=== PATIENT | female | born 1955 | race Caucasian/White ===

== ENCOUNTER 2017-12-02 15:03 | Outpatient (CLI) | payer BC ==
--- NOTE | 2017-12-15 11:20 | MMO ---
BILATERAL SCREENING MAMMOGRAM: Date: 12/02/17 COMPARISON: 11/29/16 and 12/12/14. HISTORY: Screening mammography. FINDINGS: This patient's mammogram was interpreted with the assistance of computer-aided detection. Scattered fibroglandular densities are present. Benign calcifications are noted bilaterally. There is no dominant mass or architectural distortion. No concerning microcalcifications are seen. IMPRESSION: BIRADS 2: Benign Finding(s) Annual screening mammography recommended. POS: [facility]
== END 2017-12-02 15:04 | disposition home or self-care (01) ==
LOC: SCSMAMMO 15:03
PROVIDERS: ATTEND Internal Medicine
DX: Z12.31 Encounter for screening mammogram for malignant neoplasm of breast (principal)
CPT/HCPCS: 77067

== ENCOUNTER 2018-03-11 09:01 | Outpatient (CLI) | payer BC ==
--- NOTE | 2018-03-11 10:37 | MRI ---
MRI THORACIC SPINE WITHOUT CONTRAST: HISTORY: Thoracic spine fracture. COMPARISON: None. TECHNIQUE: A thoracic spine MRI is performed without intravenous Gadolinium administration. Multisequential, mu ltiplanar imaging is performed. FINDINGS: There appear to be post surgical fusion changes involving the thoracic vertebrae at T12, T10, and T11 . There is associated metallic susceptibility artifact. Grossly, the marrow signal intensity of the thoracic vertebrae is within normal limits. Mild edema along the inferior endplate of T8 and T9, li john on the basis of degenerative change. The mediastinum and lung parenchymal structures are unremarkable for acute abnormality. Dependent at electatic changes in the lower lobes are suspected. There do appear to be old right rib fractures. A moderate hiatal hernia is identified. Hyperintensities in the left kidney may represent cortical c ysts. The thoracic cord has an overall normal size and signal intensity. The conus medullaris extends beyo nd the T12 level. No evidence of cord expansion or cord malacia. There appears to be grade 1 anterolisthesis of T3 upon T4. Small central disk bulge at T3-T4 without significant central canal stenosis. Right paracentral disk osteophyte complex at T4-T5 with mild deformity of the right hemicord. T8-T9: Broad-based disk bulge abuts the thecal sac. Ventral subarachnoid space is still maintained. Mild central canal stenosis. Limited evaluation of the central spinal canal at the level of the fusion hardware. No evidence of h igh-grade central canal stenosis. Throughout the thoracic spine, the neural foramina appear to be patent. There appear to be bilateral transpedicular screws at T10, a unilateral left-sided transpedicular scr ew at T11, and bilateral transpedicular screws at T12. IMPRESSION: 1. Metallic susceptibility artifact secondary to fusion hardware from T10 through T12. 2. No evidence of high-grade central canal stenosis or high-grade foraminal narrowing. Comparison w ith prior imaging would be beneficial. POS: [facility]
== END 2018-03-11 09:02 | disposition home or self-care (01) ==
LOC: MRI 09:01
DX: S22.009A Unspecified fracture of unspecified thoracic vertebra, initial encounter for closed fracture (principal); Z98.1 Arthrodesis status
CPT/HCPCS: 72146

== ENCOUNTER 2020-08-29 09:26 | Outpatient (CLI) | payer MEDICARE, BC ==
[2020-08-29] MEDS ORDERED: Iopamidol 300 61% 50 ML VIAL FS ONE (10:00)
[2020-08-29] MEDS ORDERED: Gadobenate Dimeglumine 529 MG/1 ML (20ML VIAL) ONE (10:00)
[2020-08-29] MEDS ORDERED: Lidocaine 1% PF 10 ML AMP ONE (10:00)
[2020-08-29] MEDS ORDERED: EPINEPHrine 1 MG/ML AMP ONE (10:00)
[2020-08-29] MEDS ORDERED: Magnevist 469MG/ML 20 ML VIAL ONE (11:06)
== END 2020-08-29 09:27 | disposition home or self-care (01) ==
LOC: RAD 09:26
PROVIDERS: ATTEND Orthopaedic Surgery Orthopaedic Surgery of the Spine
DX: M25.552 Pain in left hip (principal); S73.192A Other sprain of left hip, initial encounter
CPT/HCPCS: 27093; A9577; A9579; J0171; J2001; Q9967

== ENCOUNTER 2021-03-23 11:52 | Outpatient (CLI) | payer MEDICARE, BC | END 2021-03-23 11:53 | disposition home or self-care (01) | LOC: BICMAMMO 11:52 | PROVIDERS: ATTEND Family Medicine | DX: Z12.31 Encounter for screening mammogram for malignant neoplasm of breast (principal) | CPT/HCPCS: 77063; 77067 ==

== ENCOUNTER 2021-08-16 09:07 | Outpatient (CLI) | payer MEDICARE, BC | END 2021-08-16 09:08 | disposition home or self-care (01) | LOC: BICMAMMO 09:07 | PROVIDERS: ATTEND Orthopaedic Surgery Orthopaedic Surgery of the Spine | DX: M81.0 Age-related osteoporosis without current pathological fracture (principal); M85.851 Other specified disorders of bone density and structure, right thigh; M85.852 Other specified disorders of bone density and structure, left thigh | CPT/HCPCS: 77080 ==

== ENCOUNTER 2022-08-23 08:41 | Outpatient (CLI) | payer MEDICARE, BC | END 2022-08-23 08:42 | disposition home or self-care (01) | LOC: BICMAMMO 08:41 | DX: M81.0 Age-related osteoporosis without current pathological fracture (principal); M85.852 Other specified disorders of bone density and structure, left thigh | CPT/HCPCS: 77080 ==

== ENCOUNTER 2024-07-16 12:26 | Outpatient (CLI) | payer MEDICARE | END 2024-07-16 12:27 | disposition home or self-care (01) | LOC: BICMAMMO 12:26 | PROVIDERS: ATTEND Family Medicine | DX: Z12.31 Encounter for screening mammogram for malignant neoplasm of breast (principal) | CPT/HCPCS: 77063; 77067 ==